=== PATIENT | female | born 1945 | race Caucasian/White ===

== ENCOUNTER 2018-05-04 14:53 | Inpatient (IN) | payer MEDICARE ==
[~2018-05-04 14:53] MED LIST: Glycopyrrolate 0.2 MG/ML 5 ML SYRINGE ONE; ISOVUE-370 76%-LOCM 1 ML ONE; Lidocaine 1% PF 5 ML VIAL ONE; Ondansetron HCl/PF 4 MG/2 ML Vial ONE; PROPOFOL 200 MG/20 ML VIAL ONE; Succinylcholine Chloride 20 MG/ML 10 ml SYRINGE FS ONE
[2018-05-04 15:26] LABS: #Lymphocytes 1.1 thou/uL (1.20-3.40); #Monocytes 0.5 thou/uL (0.11-0.59); %Basophils 0.2 % (0.0-1.0); %Eosinophils 0.1 % (0.0-10.0); %Lymphocytes 9.1 % (21.0-51.0); %Monocytes 4.3 % (0.0-10.0); %Neutrophils 86.3 % (42.0-75.0); Hemoglobin 14.8 g/dL (12.0-16.0); Mean Corpuscular HGB CONC 34.6 g/dL (32.0-36.0); Mean Corpuscular Hemoglobin 31.9 pg (27.0-31.0); Mean Corpuscular Volume 92.3 fL (78.0-98.0); Platelet Count 238 thou/uL (130-400); RBC Distribution Width 12.1 % (11.5-14.5); Red Blood Cell (RBC) Count 4.64 mill/uL (4.20-5.40); White Blood Cell (WBC) Count 11.5 thou/uL (4.8-10.8)
[2018-05-04 15:49] LABS: ALT (SGPT) 15 U/L (8-55); AST (SGOT) 17 U/L (5-34); Albumin 4.2 g/dL (3.4-4.8); Alkaline Phosphatase 65 U/L (40-150); Anion Gap 15 mmol/L (10-20); BUN (Urea Nitrogen) 13 mg/dL (9.8-20.1); Bilirubin, Total 1.9 mg/dL (0.2-1.2); Calc. Creatinine Clearance 0 mL/min (70-130); Calcium 9.5 mg/dL (7.8-10.44); Carbon Dioxide 24 mmol/L (23-31); Chloride 105 mmol/L (98-107); Estimated GFR-MDRD 70; Globulin 2.9 g/dL (2.4-3.5); Glucose 128 mg/dL (83-110); Lipase 10 U/L (8-78); Potassium 4.3 mmol/L (3.5-5.1); Protein, Total 7.1 g/dL (6.0-8.3); Sodium 140 mmol/L (136-145)
[2018-05-04] MEDS ORDERED: Ondansetron HCl/PF 4 MG/2 ML Vial ONE ×2 (16:52→20:54)
[2018-05-04 18:22] LABS: Bilirubin Negative (Negative); Blood, Urine Small (Negative); Clarity CLEAR (Clear); Glucose, Urine (Dipstick) Negative (Negative); Leukocyte Small (Negative); Nitrite Negative (Negative); Protein, Urine (Dipstick) Trace mg/dL (Neg-Trace); Specific Gravity, Urine 1.016 (1.002-1.036); Urobilinogen 0.2 mg/dL (0.2-1.0)
[2018-05-04 18:25] LABS: Bacteria/HPF None Seen HPF (None Seen); Pathc Cast-AUWi Flag 0.72 (0-2.49)
[2018-05-04 18:40] LABS: Hyaline Casts/LPF 0-3 HYALINE CAST LPF (0-3 Hyaline); RBC/HPF 0-3 HPF (0-3); Transitional Epithelial 0-3 HPF (0-3)
--- NOTE | 2018-05-04 19:07 | CT ---
CT OF ABDOMEN AND PELVIS 05/04/18 COMPARISON: None. HISTORY: Abdominal pain. TECHNIQUE: Serial axial CT imaging at 5 mm intervals from lung bases through pubic symphysis with IV and oral co ntrast. Coronal reformatted imaging obtained. FINDINGS: Imaged lung bases are unremarkable. No free intraperitoneal air. Small volume free fluid is seen in t he left hemipelvis. There is a probable gallstone seen in the region of the gallbladder neck on image 25. The liver and s pleen appear grossly unremarkable. There is a low density lesion in the tail of the pancreas which measures 2 cm in craniocaudal dimensi on and demonstrates Hounsfield units of approximately 20, greater than expected from a simple cyst. T he adrenal glands and the kidneys demonstrate no acute findings. The uterus appears surgically absent. There is sigmoid diverticulosis without evidence for diverticulitis. The appendix is dilated and thick walled. There is periappendiceal fat stranding. The appendix extend s from the posterior aspect of the cecum and extends into the lower midline pelvis. The appendix lety ures 1.1 cm in transverse dimension and there is adjacent mesenteric fat stranding. No drainable absc ess is noted. Review of the vascular structures demonstrates multifocal atherosclerotic calcification of the abdomi nal aorta. There is a small hiatal hernia. There is no lymphadenopathy seen in the abdomen or pelvis. There is a nonspecific hyperdense partially rim calcified lesion in the anterior aspect of the lower pelvis superior and anterior to the urinary bladder. This lesion measures 3.5 cm and demonstrates int ernal Hounsfield units of approximately 224, suggesting a calcified lesion. There is no evidence for bowel obstruction. Review of the osseous structures demonstrates multilevel lumbar spine degenerative change with disc s pace narrowing and multilevel facet hypertrophic change. There is a nonspecific sclerotic focus within the anterior aspect of the T12 vertebral body suggestin g a benign bone island. IMPRESSION: 1. Evidence of acute appendicitis. 2. Low density lesion in the tail of the pancreas which could represent a neoplastic process. 3. Nonspecific lesion within the pelvis which should be further evaluated with followup imaging. All findings discussed with Dr. Redmond at 6:45 p.m., 05/04/18. Code CR POS: [facility]
[2018-05-04] MEDS ORDERED: CEFAZOLIN 1 GM VIAL ONE (19:37)
[2018-05-04] MEDS ORDERED: cefOXitin 2 GM in Sodium Chloride 0.9% 100 ML IVPB SCH (19:45)
[2018-05-04] MEDS ORDERED: Bupivacaine HCl 0.25%/Epi 0.0005/PF 10 ML VIAL FS ONE (22:25)
[2018-05-04] MEDS ORDERED: Fentanyl 250 MCG/5 ML VIAL ONE (23:16)
--- NOTE | 2018-05-04 23:29 | HP ---
CHIEF COMPLAINT: Abdominal pain. HISTORY OF PRESENT ILLNESS: The patient is a pleasant 72-year-old white female. She had onset of ab dominal pain yesterday. It became worse today and she presented to the emergency room. In the emerg ency room, she was evaluated by Dr. Michael Luevano and at about 3:00 this afternoon, she had laborato ry studies revealing elevated white blood cell count of 11.5, hemoglobin of 14.8, platelet count is 2 38. Chemistry profile is essentially unremarkable, although her bilirubin slightly elevated at 1.9. CT scan was obtained revealing findings consistent with acute appendicitis. I was consulted for fur ther management. Unfortunately, have been waiting until this hour for an operating room to become av ailable to proceed with her surgery. PAST MEDICAL HISTORY: Essentially none. PAST SURGICAL HISTORY: Hysterectomy at least 30 years ago. MEDICATIONS: None. ALLERGIES: SULFA MEDICATIONS. PERSONAL AND SOCIAL HISTORY: She is with one child. She had several friends and family pres ent with her in the room. She denies tobacco or alcohol use. REVIEW OF SYSTEMS: Otherwise, unremarkable. FAMILY HISTORY: Noncontributory. PHYSICAL EXAMINATION: VITAL SIGNS: She is afebrile. Vital signs within normal limits. GENERAL: She is a well-developed, well-nourished, pleasant, thin white female in no acute distress. She is alert and oriented x3. HEAD, EYES, EARS, NOSE, THROAT: Unremarkable. NECK: Supple, without mass or tenderness. LUNGS: Clear to auscultation throughout. CARDIAC: Regular rate and rhythm without murmur. ABDOMEN: Diffusely tender with focal severe tenderness with peritoneal findings in the right lower q uadrant. Bowel sounds are present but hypoactive. EXTREMITIES: Unremarkable. ASSESSMENT: The patient with a CT scan and examination consistent with acute appendicitis. PLAN: Laparoscopic appendectomy. I have discussed the operation in detail with the patient as well as potential risks. She understands and agrees to proceed with surgery at this time.
[2018-05-05] MEDS ORDERED: HYDROcodone/Acetaminophen 10/325 mg Tablet PO PRN (00:59)
[2018-05-05] MEDS ORDERED: Promethazine HCl 25 MG/ML VIAL IM PRN ×2 (00:59→01:19)
[2018-05-05] MEDS ORDERED: Ondansetron HCl/PF 4 MG/2 ML Vial IVP PRN ×2 (00:59→01:19)
[2018-05-05] MEDS ORDERED: Morphine 4 MG/ML Carpuject SLOW IVP PRN (00:59)
[2018-05-05] MEDS ORDERED: Dextrose 5% in Water 1,000 ML IV PRN (00:59)
[2018-05-05] MEDS ORDERED: Dextrose 50% Abboject 50 ML SYRINGE SLOW IVP PRN (00:59)
[2018-05-05] MEDS ORDERED: Piperacillin/Tazobactam 3.375 GM VIAL ONE (01:15)
[2018-05-05] MEDS ORDERED: Sodium Chloride 0.9% 100 ML ONE (01:18)
[2018-05-05] MEDS ORDERED: Promethazine HCl 25 MG/ML VIAL SLOW IVP PRN (01:19)
[2018-05-05] MEDS ORDERED: Fentanyl 100 MCG/2 ML VIAL ONE (01:51)
--- NOTE | 2018-05-05 04:44 | OP ---
DATE OF PROCEDURE: 05/05/2018 PREOPERATIVE DIAGNOSIS: Acute appendicitis. POSTOPERATIVE DIAGNOSIS: Acute appendicitis, perforated. OPERATIONS PERFORMED: Laparoscopic appendectomy with extensive intra-abdominal irrigation, placement of intra-abdominal drain. SURGEON: Dr. Philip Day. ANESTHESIA: General endotracheal. INDICATIONS: Patient is a 72-year-old white female. She presented to the emergency room with findin gs consistent with acute appendicitis and is taken to the operating room, come for laparoscopic appen dectomy. She did have more diffuse pain in her abdomen then it is typical with appendicitis. DESCRIPTION OF OPERATION: Informed consent was obtained. Patient was taken to the operating room, w here general endotracheal anesthesia obtained with the patient in supine position. Abdomen was prepp ed with ChloraPrep and draped in sterile fashion. Local anesthetic was infiltrated and 5-mm infraumb ilical incision was created through which a Veress needle was passed into the peritoneal cavity and p neumoperitoneum established using carbon dioxide up to a pressure of 15 mmHg. A 5 mm trocar port was passed through this same incision. Laparoscopic camera was passed through this port. Under direct vision, 2 additional ports were placed including a 5 mm left lower quadrant port, a 12 mm suprapubic port. Initial examination within the abdomen revealed purulent material. There was a significant volume of this within the pelvis. This material was aspirated and sent for culture. There was noted to be an inflammatory mass adherent against the anterior abdominal wall in the low midline abdomen. This had around egg-like appearance appeared to be perhaps calcified. This was dissected away from the anter ior abdominal wall and proved to be associated with the omentum. It was dissected away from the omen christ and submitted as a specimen. I suspect this is a calcified segment of the omentum, probably an a carlos that become ischemic. Obvious appendicitis was identified, this distally had a gangrenous appearance. The mesoappendix was taken down using electrocautery and the base of the appendix was skeletonized. It was divided betwe en PDS Endoloop ties and the appendiceal stump was cauterized. The appendix and the omental mass wer e placed in a specimen retrieval sac and removed through the suprapubic port. The fascia was closed with a [id number] suture of 0 Vicryl. The abdominal contents were then copiously irrigated with 3 liters of saline. All irrigant was aspirated. A #19 round fluted drain was brought out through t he left lower quadrant port and placed down within the pelvis and in the right lower quadrant. It wa s secured externally with a 2-0 nylon suture. All ports and instruments removed under direct vision. Pneumoperitoneum was carefully evacuated. Additional local anesthetic infiltrated in each port sit e. The suprapubic wound was thoroughly irrigated with additional saline. This lower wound was close d in layers, closing the Jennifer's fascia with 3-0 Monocryl and skin edges with 4-0 Monocryl. Dermabo nd was placed external to the umbilical and suprapubic incisions. Gauze dressing was placed on gera ter exit site in the left lower quadrant. There were no complications. Patient tolerated the proced ure well and was taken to recovery room in stable condition.
[2018-05-05 05:36] LABS: Anion Gap 10 mmol/L (10-20); BUN (Urea Nitrogen) 12 mg/dL (9.8-20.1); Calc. Creatinine Clearance 0 mL/min (70-130); Calcium 8.3 mg/dL (7.8-10.44); Carbon Dioxide 25 mmol/L (23-31); Chloride 107 mmol/L (98-107); Estimated GFR-MDRD 76; Glucose 149 mg/dL (83-110); Potassium 4.2 mmol/L (3.5-5.1); Sodium 138 mmol/L (136-145)
[2018-05-05 05:41] LABS: Band 51 % (5-11); Hemoglobin 11.6 g/dL (12.0-16.0); Lymphocytes 8 % (21-51); MDiff Complete? YES; Mean Corpuscular HGB CONC 33.5 g/dL (32.0-36.0); Mean Corpuscular Hemoglobin 31.5 pg (27.0-31.0); Mean Corpuscular Volume 93.9 fL (78.0-98.0); Mean Platelet Volume 6.9 fL (7.4-10.4); Monocytes 2 % (0-10); Neutrophil 39 % (42-75); PLT Morphology Comment Appears Adequate; Platelet Count 179 thou/uL (130-400); RBC Distribution Width 12.4 % (11.5-14.5); Red Blood Cell (RBC) Count 3.69 mill/uL (4.20-5.40); Reflex for Review?? NO
[2018-05-05] MEDS: Ketorolac Tromethamine 30 MG/ML VIAL IVP SCH ×3 (05:49→17:47)
[2018-05-05] MEDS: D5 1/2 NS w/20 mEq KCL 1,000 ML IV SCH ×2 (05:50→10:40)
[2018-05-05] MEDS: Piperacillin/Tazobactam 3.375 GM in Sodium Chloride 0.9% 100 ML IVPB SCH ×3 (06:37→17:48)
--- NOTE | 2018-05-05 07:04 | PRG ---
DATE OF SERVICE: 05/05/2018 SUBJECTIVE: Ms. Castellon is status post laparoscopic appendectomy that finished in the early hours of this morning. She is resting comfortably in bed and noted she has discomfort when she moves around as appropriate. She had perforated appendicitis at the time of her surgery. PHYSICAL EXAMINATION: VITAL SIGNS: She is afebrile, temperature is 97.8, pulse is 80, blood pressure is within normal limi ts. Drain output is serosanguineous (more sanguinous) and was 60 mL this morning. LUNGS: Clear to auscultation. ABDOMEN: Two incisions appear to be healing nicely and the drain site in the left lower abdomen is c overed by gauze dressing. LABORATORY STUDIES: CBC from this morning reveals white blood cell count of 11.0, hemoglobin 11.6, p latelet count is 179. She has 51% bands on her CBC this morning. Chemistry reveals unremarkable bas ic metabolic panel. Her glucose is slightly elevated at 149. Her TSH is normal at 3.7. CULTURE: Culture specimen is not available yet. ASSESSMENT: The patient is postoperative day #1 following laparoscopic appendectomy for perforated a ppendicitis. She is on a clear liquid diet. She will be able to advance this as she tolerates. I w ould continue her on intravenous Zosyn at this time and if she is stable, then she may be ready for d ischarge as early as tomorrow. I will be out of town and Dr. Huizar will be covering in my absence.
[2018-05-05] MEDS: Famotidine/PF 20 mg/2ml Vial SLOW IVP SCH ×3 (11:18→22:13)
[2018-05-05] MEDS: Enoxaparin Sodium 40 MG/0.4 ML SYRINGE SC SCH (22:13)
[2018-05-06] MEDS: Piperacillin/Tazobactam 3.375 GM in Sodium Chloride 0.9% 100 ML IVPB SCH ×4 (00:04→17:53)
[2018-05-06] MEDS: Ketorolac Tromethamine 30 MG/ML VIAL IVP SCH ×4 (00:06→17:51)
[2018-05-06] MEDS: D5 1/2 NS w/20 mEq KCL 1,000 ML IV SCH ×2 (06:24→11:32)
[2018-05-06] MEDS: Famotidine 20 MG TAB PO SCH (08:49)
[2018-05-06 11:40] LABS: #Eosinphils 0.2 thou/uL (0.0-0.7); #Lymphocytes 1.1 thou/uL (1.20-3.40); #Monocytes 0.6 thou/uL (0.11-0.59); #Neutrophils 8.2 thou/uL (1.40-6.50); %Eosinophils 2.3 % (0.0-10.0); %Lymphocytes 10.4 % (21.0-51.0); %Monocytes 5.4 % (0.0-10.0); %Neutrophils 81.8 % (42.0-75.0); Hemoglobin 10.6 g/dL (12.0-16.0); Mean Corpuscular HGB CONC 33.1 g/dL (32.0-36.0); Mean Corpuscular Hemoglobin 31.7 pg (27.0-31.0); Mean Corpuscular Volume 95.7 fL (78.0-98.0); Mean Platelet Volume 7.6 fL (7.4-10.4); Platelet Count 176 thou/uL (130-400); RBC Distribution Width 12.2 % (11.5-14.5); Red Blood Cell (RBC) Count 3.34 mill/uL (4.20-5.40)
[2018-05-06 12:08] LABS: Anion Gap 9 mmol/L (10-20); BUN (Urea Nitrogen) 11 mg/dL (9.8-20.1); Calc. Creatinine Clearance 0 mL/min (70-130); Calcium 8.3 mg/dL (7.8-10.44); Carbon Dioxide 25 mmol/L (23-31); Chloride 108 mmol/L (98-107); Estimated GFR-MDRD 82; Glucose 105 mg/dL (83-110); Potassium 3.8 mmol/L (3.5-5.1); Sodium 138 mmol/L (136-145)
[2018-05-06] MEDS: hydrALAZINE 20 MG/ML VIAL SLOW IVP PRN ×2 (12:54→16:49)
--- NOTE | 2018-05-06 15:01 | PDOC.GSPN ---
Surgery Progress Note: Subj - Subjective Narrative: Feels good. Minimal abdominal pain. Her appetite is poor and she states that food has no taste but she is tolerating her liquid diet and has passed a little gas. She is not nauseated. Afebrile with normal vital signs. White count is normal. Electrolytes unremarkable. Abdomen is soft and nondistended. She has some mild lower abdominal tenderness and serosanguineous KATELYN drainage which is scant. Assessment/plan: Perforated appendicitis. Bowel function is returning and she is afebrile. White count today was normal. We'll continue with IV antibiotics and advance diet as tolerated. If she is afebrile overnight and her white count remains normal the drain will be discontinued and we'll plan to discharge her home. Surgery Progress Note: Obj - Vital signs Vital signs: Vital Signs - Most Recent Temp Pulse Resp BP Pulse Ox 98.0 F 71 16 159/70 H 95 05/06/18 12:01 05/06/18 12:54 05/06/18 12:01 05/06/18 13:48 05/06/18 08:05 Surgery Progress Note: Results - Labs Result Diagrams: 05/06/18 11:27 05/06/18 11:27 Lab results: Laboratory Results - last 24 hr 05/06/18 05/06/18 11:27 11:27 WBC 10.0 RBC 3.34 L Hgb 10.6 L Hct 31.9 L MCV 95.7 MCH 31.7 H MCHC 33.1 RDW 12.2 Plt Count 176 MPV 7.6 Neutrophils % 81.8 H Lymphocytes % 10.4 L Monocytes % 5.4 Eosinophils % 2.3 Basophils % 0.0 Neutrophils # 8.2 H Lymphocytes # 1.1 L Monocytes # 0.6 H Eosinophils # 0.2 Basophils # 0.0 Sodium 138 Potassium 3.8 Chloride 108 H Carbon Dioxide 25 Anion Gap 9 L BUN 11 Creatinine 0.70 Estimated GFR (MDRD) 82 Glucose 105 Calcium 8.3
[2018-05-06] MEDS ORDERED: Simethicone Chewable 80 MG TAB PO PRN (17:22)
[2018-05-07] MEDS: Ketorolac Tromethamine 30 MG/ML VIAL IVP SCH ×3 (00:08→12:02)
[2018-05-07] MEDS: Famotidine 20 MG TAB PO SCH ×2 (00:09→09:39)
[2018-05-07] MEDS: Enoxaparin Sodium 40 MG/0.4 ML SYRINGE SC SCH (00:09)
[2018-05-07] MEDS: Piperacillin/Tazobactam 3.375 GM in Sodium Chloride 0.9% 100 ML IVPB SCH ×3 (00:09→11:06)
[2018-05-07] MEDS: D5 1/2 NS w/20 mEq KCL 1,000 ML IV SCH ×2 (00:10→08:59)
[2018-05-07 05:35] LABS: Anion Gap 7 mmol/L (10-20); BUN (Urea Nitrogen) 6 mg/dL (9.8-20.1); Calc. Creatinine Clearance 0 mL/min (70-130); Carbon Dioxide 26 mmol/L (23-31); Chloride 111 mmol/L (98-107); Estimated GFR-MDRD 81; Glucose 114 mg/dL (83-110); Potassium 3.9 mmol/L (3.5-5.1); Sodium 140 mmol/L (136-145)
[2018-05-07 05:55] LABS: #Eosinphils 0.4 thou/uL (0.0-0.7); #Monocytes 0.5 thou/uL (0.11-0.59); #Neutrophils 5.4 thou/uL (1.40-6.50); %Basophils 0.1 % (0.0-1.0); %Eosinophils 4.9 % (0.0-10.0); %Lymphocytes 13.3 % (21.0-51.0); %Monocytes 6.9 % (0.0-10.0); %Neutrophils 74.7 % (42.0-75.0); Hemoglobin 10.3 g/dL (12.0-16.0); Mean Corpuscular HGB CONC 34.2 g/dL (32.0-36.0); Mean Corpuscular Hemoglobin 32.1 pg (27.0-31.0); Mean Corpuscular Volume 93.8 fL (78.0-98.0); Mean Platelet Volume 7.2 fL (7.4-10.4); Platelet Count 207 thou/uL (130-400); Red Blood Cell (RBC) Count 3.21 mill/uL (4.20-5.40); White Blood Cell (WBC) Count 7.2 thou/uL (4.8-10.8)
[2018-05-07] MEDS ORDERED: cloNIDine 0.1 MG TAB PO SCH (09:30)
[2018-05-07] MEDS ORDERED: hydrALAZINE 20 MG/ML VIAL SLOW IVP PRN (10:01)
[2018-05-07] MEDS ORDERED: cloNIDine 0.1 MG TAB PO PRN (10:01)
[2018-05-07] MEDS ORDERED: Labetalol HCl 100 MG/20 ML VIAL SLOW IVP PRN (10:01)
[2018-05-07] MEDS ORDERED: NIFEdipine XL 30 MG TAB PO SCH (10:15)
[2018-05-07 12:18] VITALS: TEMP 98.3
[2018-05-07 14:46] VITALS: BP 179/77
[2018-05-08] MEDS ORDERED: NIFEdipine XL 30 MG TAB PO SCH (09:00)
== END 2018-05-07 14:46 | disposition home or self-care (01) | DRG 340 ==
LOC: ERS 14:53 → NM 19:31 → 3SE 05-05 01:01
PROVIDERS: ADMIT Specialist; ATTEND Specialist
PROC: 0DTJ4ZZ Resection of Appendix, Percutaneous Endoscopic Approach (ICD-10-PCS; principal; 2018-05-05)
DX: K35.2 Acute appendicitis with generalized peritonitis (principal); Z88.2 Allergy status to sulfonamides
CPT/HCPCS: 36415; 74177; 80048; 80053; 81003; 81015; 83690; 84443; 85025; 86850; 86900; 86901; 87070; 87077; 87205; 88304; 93005; 96361; 96365; 96375; 96376; A4216; J0360; J0690; J0694; J1650; J1885; J2001; J2270; J2405; J2543; J2704; J3010; J7050; S0028

== ENCOUNTER 2020-07-23 16:53 | Inpatient (IN) | payer MEDICARE ==
[~2020-07-23 16:53] MED LIST changes: -Glycopyrrolate 0.2 MG/ML 5 ML SYRINGE ONE; -ISOVUE-370 76%-LOCM 1 ML ONE; +Iopamidol-370 76% 500 ML 1 ML ONE; -Lidocaine 1% PF 5 ML VIAL ONE; -Ondansetron HCl/PF 4 MG/2 ML Vial ONE; -PROPOFOL 200 MG/20 ML VIAL ONE; -Succinylcholine Chloride 20 MG/ML 10 ml SYRINGE FS ONE
[2020-07-23 17:43] LABS: #Basophils 0.1 thou/uL (0.0-0.2); #Eosinphils 0.1 thou/uL (0.0-0.7); #Lymphocytes 1.2 thou/uL (1.20-3.40); #Monocytes 0.9 thou/uL (0.11-0.59); %Basophils 0.3 % (0.0-1.0); %Eosinophils 0.3 % (0.0-10.0); %Lymphocytes 7.9 % (21.0-51.0); %Monocytes 5.8 % (0.0-10.0); %Neutrophils 85.7 % (42.0-75.0); Hemoglobin 14.2 g/dL (12.0-16.0); Mean Corpuscular HGB CONC 32.9 g/dL (32.0-36.0); Mean Corpuscular Hemoglobin 31.9 pg (27.0-31.0); Mean Corpuscular Volume 97.2 fL (78.0-98.0); Mean Platelet Volume 7.7 fL (7.4-10.4); Platelet Count 281 thou/uL (130-400); Red Blood Cell (RBC) Count 4.45 mill/uL (4.20-5.40); White Blood Cell (WBC) Count 15.2 thou/uL (4.8-10.8)
[2020-07-23 17:50] LABS: PTT 28.7 sec (22.9-36.1); Prothrombin Time 13.4 sec (12.0-14.7)
[2020-07-23 18:04] LABS: ALT (SGPT) 21 U/L (8-55); AST (SGOT) 27 U/L (5-34); Albumin 3.8 g/dL (3.4-4.8); Alkaline Phosphatase 53 U/L (40-110); Anion Gap 16 mmol/L (10-20); BUN (Urea Nitrogen) 12 mg/dL (9.8-20.1); Bilirubin, Total 1.3 mg/dL (0.2-1.2); CK (CPK) 88 U/L (29-168); Calc. Creatinine Clearance 0 mL/min (70-130); Calcium 8.3 mg/dL (7.8-10.44); Carbon Dioxide 23 mmol/L (23-31); Chloride 106 mmol/L (98-107); Estimated GFR-MDRD 81; Globulin 2.4 g/dL (2.4-3.5); Glucose 133 mg/dL (83-110); Potassium 3.8 mmol/L (3.5-5.1); Protein, Total 6.2 g/dL (6.0-8.3); Sodium 141 mmol/L (136-145)
[2020-07-23 18:59] LABS: Bilirubin Negative (Negative); Blood, Urine Negative (Negative); Clarity Clear (Clear); Glucose, Urine (Dipstick) Normal (Negative); Ketone, Urine Negative (Negative); Leukocyte Negative Leu/uL (Negative); Nitrite Negative (Negative); Protein, Urine (Dipstick) Negative (Neg-Trace); Specific Gravity, Urine 1.021 (1.002-1.036); Urobilinogen Normal mg/dL (Less than 2)
--- NOTE | 2020-07-23 19:24 | CT ---
CT ABDOMEN AND PELVIS WITH IV CONTRAST: 07/23/20 HISTORY: Abdominal pain. Right rectal bleeding. COMPARISON: 05/04/18. FINDINGS: There are mild dependent changes in the lung bases. A small hiatal hernia is present. A calcified gal lstone is present. The liver, spleen, adrenal glands, and right kidney are normal. There are parapelv ic cysts in the left kidney. There is a stable 2 cm (CC dimension)cystic mass in the tail of the pancreas. No free air or lymphadenopathy is seen in the abdomen or pelvis. There is a tiny amount of free fluid seen in the pelvis. The patient is post appendectomy and hysterectomy. There are vascular calcifica tions without evidence of aneurysmal dilatation of the abdominal aorta. There are degenerative change s in the spine. The small bowel loops are not abnormally dilated. There is sigmoid diverticulosis. There is thickenin g of the wall of the colon from the cecum through the distal descending colon. A tiny fat containing umbilical hernia is present. IMPRESSION: 1. Small hiatal hernia. 2. Cholelithiasis. 3. 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 4. Sigmoid diverticulosis. 5. Tiny amount of free fluid in the pelvis. 6. Thickening of the wall of the colon, likely due to colitis. Evaluation with colonoscopy is re commended. POS: OFF
[2020-07-23] MEDS ORDERED: Pantoprazole 40 MG VIAL ONE (19:36)
[2020-07-23] MEDS ORDERED: Aspirin Chewable 81 MG TAB ONE (19:36)
[2020-07-23] MEDS ORDERED: Ondansetron PF 4 MG/2 ML Vial IVP PRN (20:02)
--- NOTE | 2020-07-23 20:09 | PDOC.HHP ---
Hospitalist HPI - History of Present Illness Rectal bleed History of Present Illness: 75-year-old male with no known past medical history presents to the emergency department with a complaint of bloody stools of onset this morning. Patient report 4 bloody BM since onset, associated with abdominal cramps. Patient denied any nausea or vomiting. She denied any epigastric pain. This is her first episode of GI bleed. No bleeding since being in the ED. CT abdomen and pelvis done in the emergency department shows sigmoid diverticulosis, and thickening wall of the colon suggesting colitis. Hemoglobin is 14.2 and normal coagulation profile. Her troponin noted to be mildly elevated to be 0.144. Patient does not have a baseline history of coronary artery disease. Patient is hospitalized for further evaluation for GI bleed. ED Course: She was given IV Protonix in the ED. She was also given aspirin for possible ACS. Hospitalist ROS - Review of Systems Other: Except as documented, all other systems reviewed and negative. Hospitalist History - Past Medical History Source: patient Cardiac: reports: no pertinent history Pulmonary: reports: no pertinent history GLOBE MOUNTER: reports: no pertinent history Gastrointestinal: reports: no pertinent history Heme/Onc: reports: no pertinent history Endocrine: reports: no pertinent history - Past Surgical History Past Surgical History: reports: no pertinent history - Family History Family History: reports: cardiac disorder (Mother) - Social History Smoking Status: Never smoker Alcohol: reports: None Drugs: reports: none - Exam General Appearance: NAD, awake alert Eye: PERRL, anicteric sclera ENT: normocephalic atraumatic, no oropharyngeal lesions, moist mucosa Neck: supple, no JVD, no thyromegaly Heart: RRR, no murmur, normal peripheral pulses Respiratory: CTAB, no wheezes, no rales, no ronchi, normal chest expansion Gastrointestinal: soft, non-tender, non-distended, normal bowel sounds, no hepatomegaly Extremities: no cyanosis, no edema Skin: normal turgor Neurological: cranial nerve grossly intact, no weakness, no focal deficits Musculoskeletal: normal strength, no muscle wasting Psychiatric: normal affect, normal behavior, A&O x 3 Hospitalist Results - Labs Result Diagrams: 07/24/20 04:00 07/24/20 04:00 Lab results: WBC 15.2 thou/uL (4.8-10.8) H 07/23/20 17:32 Hgb 14.2 g/dL (12.0-16.0) 07/23/20 17:32 Hct 43.2 % (36.0-47.0) 07/23/20 17:32 MCV 97.2 fL (78.0-98.0) 07/23/20 17:32 Plt Count 281 thou/uL (130-400) 07/23/20 17:32 Neutrophils % 85.7 % (42.0-75.0) H 07/23/20 17:32 Sodium 141 mmol/L (136-145) 07/23/20 17:32 Potassium 3.8 mmol/L (3.5-5.1) 07/23/20 17:32 Chloride 106 mmol/L (98-107) 07/23/20 17:32 Carbon Dioxide 23 mmol/L (23-31) 07/23/20 17:32 BUN 12 mg/dL (9.8-20.1) 07/23/20 17:32 Creatinine 0.70 mg/dL (0.6-1.1) 07/23/20 17:32 Glucose 133 mg/dL (83-110) H 07/23/20 17:32 Calcium 8.3 mg/dL (7.8-10.44) 07/23/20 17:32 Total Bilirubin 1.3 mg/dL (0.2-1.2) H 07/23/20 17:32 AST 27 U/L (5-34) 07/23/20 17:32 ALT 21 U/L (8-55) 07/23/20 17:32 Alkaline Phosphatase 53 U/L (40-110) 07/23/20 17:32 Creatine Kinase 88 U/L (29-168) 07/23/20 17:32 CK-MB (CK-2) 3.0 ng/mL (0-6.6) 07/23/20 17:32 Troponin I 0.144 ng/mL (< 0.028) H 07/23/20 17:32 B-Natriuretic Peptide 69.4 pg/mL (0-100) 07/23/20 17:32 Serum Total Protein 6.2 g/dL (6.0-8.3) 07/23/20 17:32 Albumin 3.8 g/dL (3.4-4.8) 07/23/20 17:32 Urine Ketones Negative mg/dL (Negative) 07/23/20 18:33 Urine Blood Negative (Negative) 07/23/20 18:33 Urine Nitrite Negative (Negative) 07/23/20 18:33 Ur Leukocyte Esterase Negative Shaye/uL (Negative) 07/23/20 18:33 - Radiology Interpretation CT scan - abdomen Status: report reviewed by me (Sigmoid diverticulosis, tiny amount of free fluid in the pelvis, thickening of the wall of the colon likely due to colitis, cholelithiasis, small hiatal hernia.) Hospitalist H&P A/P - Problem (1) Lower GI bleed Code(s): K92.2 - GASTROINTESTINAL HEMORRHAGE, UNSPECIFIED Status: Acute Assessment and Plan: No known precipitant. No prior history of GI bleed. (2) Elevated troponin Code(s): R79.89 - OTHER SPECIFIED ABNORMAL FINDINGS OF BLOOD CHEMISTRY Status: Acute Assessment and Plan: No history of coronary artery disease. (3) Leukocytosis Code(s): D72.829 - ELEVATED WHITE BLOOD CELL COUNT, UNSPECIFIED Status: Acute Assessment and Plan: No fever or tachycardia and does not meet criteria for sepsis. (4) Cystic mass of pancreas Code(s): K86.2 - CYST OF PANCREAS Status: Acute Assessment and Plan: Old finding and stable per CT scan result. - Plan Plan: Admit to the medical floor. Supportive measures with IV hydration with normal saline. Pain medications as needed. Start IV Protonix. GI consult requested. Patient may need EGD/colonoscopy. Patient has low cardiac risk factors. Only positive risk factor is family history. Will trend troponin and obtain echocardiogram. Further management will based on troponin result. Will avoid aspirin at this time given rectal bleeding. Monitor and treat blood pressure. Further monitoring of pancreatic cystic mass as outpatient.
[2020-07-23] MEDS: Pantoprazole 40 MG VIAL IVP SCH (23:48)
[2020-07-23] MEDS: Sodium Chloride 0.9% 1,000 ML IV SCH (23:48)
[2020-07-24] LABS: Troponin I 0.144 ng/mL (< 0.028)
[2020-07-24 01:30] VITALS: BMI 22.7
[2020-07-24] MEDS: Sodium Chloride 0.9% 1,000 ML IV SCH ×3 (02:51→17:07)
[2020-07-24 04:43] LABS: #Eosinphils 0.1 thou/uL (0.0-0.7); #Lymphocytes 1.6 thou/uL (1.20-3.40); #Monocytes 0.8 thou/uL (0.11-0.59); #Neutrophils 11.1 thou/uL (1.40-6.50); %Basophils 0.3 % (0.0-1.0); %Eosinophils 0.4 % (0.0-10.0); %Lymphocytes 11.7 % (21.0-51.0); %Neutrophils 81.7 % (42.0-75.0); Hemoglobin 12.3 g/dL (12.0-16.0); Mean Corpuscular HGB CONC 32.4 g/dL (32.0-36.0); Mean Corpuscular Hemoglobin 31.5 pg (27.0-31.0); Mean Corpuscular Volume 97.3 fL (78.0-98.0); Mean Platelet Volume 7.8 fL (7.4-10.4); Platelet Count 258 thou/uL (130-400); RBC Distribution Width 12.9 % (11.5-14.5); Red Blood Cell (RBC) Count 3.92 mill/uL (4.20-5.40); White Blood Cell (WBC) Count 13.6 thou/uL (4.8-10.8)
[2020-07-24 04:57] LABS: Anion Gap 11 mmol/L (10-20); BUN (Urea Nitrogen) 10 mg/dL (9.8-20.1); Calc. Creatinine Clearance 75 mL/min (70-130); Calcium 7.8 mg/dL (7.8-10.44); Carbon Dioxide 26 mmol/L (23-31); Chloride 109 mmol/L (98-107); Estimated GFR-MDRD 90; Glucose 110 mg/dL (83-110); Potassium 3.6 mmol/L (3.5-5.1); Sodium 142 mmol/L (136-145)
[2020-07-24] MEDS: Pantoprazole 40 MG VIAL IVP SCH ×2 (09:02→20:57)
[2020-07-24] MEDS ORDERED: Iopamidol-370 76% 500 ML 1 ML ONE (09:10)
--- NOTE | 2020-07-24 18:38 | PDOC.HOSPP ---
- Subjective Encounter Date: 07/24/20 Encounter Time: 15:00 Subjective: The patient states she had 6 bright red stools yesterday. She does not take NSAIds, aspirin or blood thinners. She took aleve once a few days ago for joint pain. She denies nausea or vomiting - Objective Vital Signs & Weight: Vital Signs (12 hours) Temp Pulse Resp BP Pulse Ox 07/24/20 16:00 98.1 F 87 16 172/74 H 95 07/24/20 12:00 98.5 F 76 17 150/66 H 94 L 07/24/20 08:00 98.7 F 80 17 171/84 H 96 Weight Weight 140 lb 14.4 oz I&O: 07/23/20 07/24/20 07/25/20 06:59 06:59 06:59 Intake Total 120 Balance 120 Result Diagrams: 07/24/20 04:00 07/24/20 04:00 Hospitalist ROS - Review of Systems Constitutional: denies: fever, chills - Medication Medications: Active Medications Generic Name Dose Route Start Last Admin Trade Name Jimboq PRN Reason Stop Dose Admin Sodium Chloride 1,000 mls @ 75 mls/hr 07/23/20 20:15 07/24/20 17:07 Normal Saline 0.9% IV 1,000 mls .[id number] VENITA Administration Pantoprazole Sodium 40 mg 07/23/20 21:00 07/24/20 09:02 Pantoprazole 40 Mg Vial IVP 40 mg Q12HR VENITA Administration - Exam General Appearance: NAD, awake alert Eye: PERRL, anicteric sclera ENT: normocephalic atraumatic, no oropharyngeal lesions Neck: no JVD Heart: RRR, no murmur, no gallops, no rubs Respiratory: CTAB, no wheezes, no rales, no ronchi Gastrointestinal: soft, non-tender, non-distended, normal bowel sounds Extremities: no cyanosis, no clubbing, no edema Hosp A/P - Plan ECHO: EF 60-6%, diastolic dysfunction CT abdomen/pelvis: small hiatal hernia. Cholelithiasis. 2 cm cystic mass in pancreatic tail. Sigmoid diverticulosis. Thickening of colon wall due to colitis. This is a 75 year old female who presented with bright red stools , abdominal pain Acute lower GI bleed - CT abdomen showed colitis. GI has been consulted, CTA is pending currently - hold off on colonoscopy for now per GI recommendations since stable hemoglobin. Possibly may be ischemic colitis? - continue protonix Leukocytosis - improving, WBC down to 13.6. No signs of infection. Unlikely infectious colitis Elevated troponin - likely type II NSTEMI - ECHO showed no wall motion abnormality Pancreatic mass - 2 cm cystic mass, unchanged. Outpatient follow up DVT prophylaxis: holding GI prophylaxis : protonix Code status: full code
--- NOTE | 2020-07-24 19:33 | CON ---
DATE OF CONSULTATION: 07/24/2020 REASON FOR CONSULTATION: Hematochezia, abnormal GI imaging. CONSULTING PROVIDER: Edson Maldonado MD HISTORY OF PRESENT ILLNESS: The patient is a 75-year-old female with no significant past medical history, presenting with complaints of hematochezia. She states that she was in her usual state of health until Wednesday evening when she began having increased suprapubic abdominal pain characterized as a cramping type sensation, radiating to her lower back, was intermittent and reached a severity of 10/10 associated with this increased suprapubic abdominal pain, the patient began to experience frequent diarrhea having approximately 4 to 5 episodes of liquid bowel movements over the next 12 hours. However, the following morning, the patient began looking at what was contained within the toilet primarily due to the observance of bright red blood per rectum on the toilet paper and was now noting to have gross red blood within the toilet itself. Over the next 12 hours, the patient had 2 to 3 additional grossly bloody bowel movements with very little stool associated with this defecation. With these bloody bowel movements that prompted her to seek healthcare assistance at the [facility] ER, where she underwent initial evaluation including routine labs and a CT scan showing significant wall thickening of the right and transverse colons. She was ultimately admitted to the hospital for further evaluation of these findings. Since being admitted to the hospital, she has had almost complete resolution of this cramping abdominal pain nor has she had any additional episodes of bowel movements or bloody bowel movements at that. Currently, she denies any nausea, vomiting, fevers, chills, hematemesis, melena, dysphagia, odynophagia, weight loss or diarrhea/constipation prior to admission. REVIEW OF SYSTEMS: A 10-category review of systems was obtained with all responses negative except for the pertinent positives as listed in HPI. PAST MEDICAL HISTORY: As per HPI. PAST SURGICAL HISTORY: Appendectomy and hysterectomy. SOCIAL HISTORY: Denies any tobacco, alcohol, or illicit drug use. FAMILY HISTORY: Sister was diagnosed with ovarian cancer at an unknown age and her other sister was diagnosed with an unknown cancer, but was widely metastatic at the time of diagnosis. Otherwise, family history is significant for heart disease in her father, mother, and maternal uncle. OUTPATIENT MEDICATIONS: None. ALLERGIES: SULFA. PHYSICAL EXAMINATION: VITAL SIGNS: Temperature 98.1, pulse 87, blood pressure 172/74, respiratory rate 16, and saturating 95% on room air. GENERAL: The patient is lying in bed, in no acute distress. Alert and oriented x4. HEENT: Normocephalic and atraumatic. NECK: Supple. No JVD or scleral icterus noted. CARDIOVASCULAR: Regular rate and rhythm with a 3/6 systolic murmur best heard at the left upper sternal border. RESPIRATORY: Clear to auscultation bilaterally with no discernible wheezes or rales. ABDOMEN: Normoactive bowel sounds. Soft and nondistended. Mild tenderness to palpation in the periumbilical region. EXTREMITIES: No cyanosis, clubbing, or edema. LABORATORY DATA: CBC with a white blood cell count of 13.6, hemoglobin 12.3, hematocrit 38.1, and platelets 258. INR 1.0. Chemistry with a sodium of 142, potassium 3.6, chloride 109, CO2 of 26, BUN 10, creatinine 0.64, glucose 110, AST 27, ALT 21, alkaline phosphatase 53, total bilirubin 1.3, and albumin 3.8. Troponins initially at 0.14, but trending to 0.13 and later 0.14. 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 However, thickening of the colonic wall was seen extending from the cecum to the ascending, transverse, and distal descending colons. ASSESSMENT AND PLAN: The patient is a 75-year-old female with no significant past medical history, presenting with hematochezia and abnormal GI imaging consistent with ischemic colitis. Ischemic colitis. The patient is presenting with acute onset of suprapubic abdominal pain, diarrhea, and later hematochezia characterized as bright red blood per rectum that ultimately prompted evaluation at the [facility] ER. While in the ER, she had a CT scan that showed significant wall thickening of the colon extending from the cecum to the descending colon without any additional abnormalities associated with this finding. However, during the course of this admission, the patient has had almost complete resolution of her abdominal pain in addition to no further bloody bowel movements nor has she had any diarrhea since admission as well. Given her advanced age, family history of cardiac disease/vasculopathy and the extent of involvement on the dilated colon. The likelihood of ischemic colitis is high. Differential could include ischemic colitis, infectious colitis, inflammatory bowel disease, diverticulitis (less likely) and/or gastrointestinal neoplasm (less likely given the extent of involvement and without metastatic disease). Recommendations; 1. Given the higher likelihood of ischemic colitis, I will confer with Radiology as to whether or not evaluation of the SMA could be seen during her last CT scan. If not, I will order a CT angiography for further evaluation. 2. In the meantime, I would recommend supportive care with IV fluids to help maintain normotensive pressures. 3. Pain control per primary team. 4. Would also obtain infectious stool studies for evaluation of possible pathogen generating her current symptoms. 5. Would wait for the above findings before proceeding with colonoscopy. If this is ischemic colitis, then she should respond to more conservative management with colonoscopy to be scheduled as an outpatient. Pancreatic cyst. 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 Given the stability of the lesion, it is likely a benign lesion. However, the patient will most likely need serial imaging from here on to make sure a malignant process is not present with the patient's age placing her at increased risk for the formation of IPMN. Recommendations; 1. Would repeat the CT scan pancreas protocol in approximately 1 year for further evaluation of the cystic mass. 2. If the cystic mass is enlarging in size or greater than 3 cm in size, I would recommend endoscopic ultrasound for further evaluation. We will continue to follow. Please call with any questions. Job ID: [id number]
--- NOTE | 2020-07-24 20:34 | CT ---
CTA ABDOMEN AND PELVIS WITH IV CONTRAST AND 3D POSTPROCESSIN07/24/20 HISTORY: Ischemic colitis. FINDINGS: There are vascular calcifications without evidence of aneurysmal dilatation of the abdominal aorta. T here is good flow in the celiac axis, SMA, and LUANN. There is mild to moderate stenosis at the origin of the left renal artery. There is continued thickening of the romeo of the colon from the cecum through the descending colon w ith pericolonic inflammatory changes which are slightly more prominent compared to the previous study . Sigmoid diverticulosis again seen. A small amount of free fluid is seen in the pelvis, slightly mor e than that on the previous study. The remainder of the exam is otherwise stable. IMPRESSION: 1. No evidence of high grade stenosis at the origins of the celiac access or SMA. 2. Findings of colitis are again seen with increased pericolonic inflammatory changes since yesterday . 3. Increase in small amount of fluid in the pelvis since yesterday. POS: OFF
[2020-07-25 04:35] LABS: Hemoglobin 12.3 g/dL (12.0-16.0); Mean Corpuscular HGB CONC 33.9 g/dL (32.0-36.0); Mean Corpuscular Volume 97.3 fL (78.0-98.0); Mean Platelet Volume 7.7 fL (7.4-10.4); Platelet Count 252 thou/uL (130-400); RBC Distribution Width 12.8 % (11.5-14.5); Red Blood Cell (RBC) Count 3.72 mill/uL (4.20-5.40); White Blood Cell (WBC) Count 14.6 thou/uL (4.8-10.8)
[2020-07-25] MEDS: Pantoprazole 40 MG VIAL IVP SCH ×2 (08:41→21:12)
[2020-07-25] MEDS ORDERED: cefTRIAXone\\ROCEPHIN 1 GM in Sodium Chloride 0.9% 100 ML IVPB SCH (09:00)
[2020-07-25] MEDS ORDERED: Albumin 25% 25 GM/100 ML BOT IVPB SCH (09:30)
[2020-07-25] MEDS ORDERED: metroNIDAZOLE 500 MG in Premix Bag 1 BAG IVPB SCH (10:00)
[2020-07-25] MEDS: cefTRIAXone\\ROCEPHIN 1 GM in Sodium Chloride 0.9% 100 ML IVPB SCH (13:14)
[2020-07-25] MEDS: metroNIDAZOLE 500 MG in Premix Bag 1 BAG IVPB SCH ×2 (14:56→21:12)
--- NOTE | 2020-07-25 15:16 | PRG ---
DATE OF SERVICE: 07/25/2020 SUBJECTIVE: Ms. Castellon is doing better. She is still having some abdominal discomfort and tenderness, but she denies any bloody stool any further. She is tolerating a liquid diet. She asked about going home. MEDICATIONS: Reviewed. 1. Rocephin. 2. Metronidazole. 3. Protonix. OBJECTIVE: VITAL SIGNS: Temperature 97, pulse 82, blood pressure 134/70. ABDOMEN: Soft. There is mild tenderness in lower abdomen. There is no rebound. There is no guarding. LABORATORY DATA: White count 14.6, hemoglobin 12, platelet count 252. INR 1. Sodium 142, potassium 3.6, BUN and creatinine are 10 and 0.6. Liver function tests normal bilirubin 1.3. ASSESSMENT: Likely acute gastroenteritis. The CT angio showed no evidence of blockage in the celiac or SMA, so this makes ischemic colitis less likely. RECOMMENDATIONS: Continue present antibiotics, restart some IV fluids. The patient has received two CT scans in the past 2 days. I think this is probably infectious. We will await and see if the stool cultures show anything. Job ID: [id number]
[2020-07-25] MEDS: Dextrose 5 % And 0.9 % NaCl 1,000 ML IV SCH (16:49)
--- NOTE | 2020-07-25 19:52 | PDOC.HOSPP ---
- Subjective Encounter Date: 07/25/20 Encounter Time: 09:00 Subjective: The patient has not had blood in her stools. She states her abdomen felt very crampy and had some loose stools, but after getting antibiotics her pain resolved. SHe tolerated clear liquid diet and requested to be advanced The patient was advanced to full liquid diet, she had one loose stool and felt it was from drinking tomato soup which causes some indigestion - Objective Vital Signs & Weight: Vital Signs (12 hours) Temp Pulse Resp BP Pulse Ox 07/25/20 16:00 97.6 F 78 16 133/76 96 07/25/20 12:00 97.4 F L 82 14 134/77 96 07/25/20 08:00 98.0 F 78 16 148/67 H 95 Weight Weight 140 lb 14.4 oz I&O: 07/24/20 07/25/20 07/26/20 06:59 06:59 06:59 Intake Total 120 195 700 Output Total 500 Balance 120 -305 700 Result Diagrams: 07/25/20 04:06 07/24/20 04:00 Hospitalist ROS - Review of Systems Constitutional: denies: fever, chills - Medication Medications: Active Medications Generic Name Dose Route Start Last Admin Trade Name Freq PRN Reason Stop Dose Admin Ceftriaxone Sodium 1 gm/ 100 mls @ 200 mls/hr 07/25/20 13:00 07/25/20 13:14 Sodium Chloride IVPB 100 mls 1300 VENITA Administration Metronidazole 500 mg/ Device 100 mls @ 100 mls/hr 07/25/20 14:00 07/25/20 14:56 IVPB 100 mls Q8HR VENITA Administration Dextrose/Sodium Chloride 1,000 mls @ 75 mls/hr 07/25/20 14:45 07/25/20 16:49 D5 0.9% Ns IV 1,000 mls .[id number] VENITA Administration Pantoprazole Sodium 40 mg 07/23/20 21:00 07/25/20 08:41 Pantoprazole 40 Mg Vial IVP 40 mg Q12HR VENITA Administration - Exam General Appearance: NAD, awake alert Eye: PERRL, anicteric sclera ENT: normocephalic atraumatic, no oropharyngeal lesions Neck: no JVD Heart: RRR, no murmur, no gallops, no rubs Respiratory: CTAB, no wheezes, no rales, no ronchi Gastrointestinal: soft, non-tender, non-distended, normal bowel sounds Extremities: no cyanosis, no clubbing, no edema Skin: normal turgor, no lesions, no rashes Neurological: cranial nerve grossly intact, normal sensation to touch, no focal deficits, no new deficit Musculoskeletal: normal tone, normal strength, no muscle wasting Psychiatric: normal affect, normal behavior, A&O x 3, oriented to person Hosp A/P - Plan ECHO: EF 60-6%, diastolic dysfunction CT abdomen/pelvis: small hiatal hernia. Cholelithiasis. 2 cm cystic mass in pancreatic tail. Sigmoid diverticulosis. Thickening of colon wall due to colitis. This is a 75 year old female who presented with bright red stools , abdominal pain Acute lower GI bleed - resolved - CT abdomen showed colitis. GI has been consulted, CTA showed no stenotic lesions. - Hb stable, no need for colonoscopy per GI #Colitis #Leukocytosis - WBC is up to 14.6. Stool cultures, campylobacter and C dfif negative. UA nega tive - will order IV ceftriaxone and flagyl . Continue full liquid diet Elevated troponin - likely type II NSTEMI - ECHO showed no wall motion abnormality Pancreatic mass - 2 cm cystic mass, unchanged. Outpatient follow up per GI DVT prophylaxis: holding GI prophylaxis : protonix Code status: full code
[2020-07-25] MEDS ORDERED: Acetaminophen 325 MG TAB PO PRN (23:12)
[2020-07-26] MEDS: metroNIDAZOLE 500 MG in Premix Bag 1 BAG IVPB SCH ×2 (05:21→14:12)
[2020-07-26] MEDS: Dextrose 5 % And 0.9 % NaCl 1,000 ML IV SCH (07:10)
[2020-07-26] MEDS: Pantoprazole 40 MG VIAL IVP SCH (08:54)
[2020-07-26 09:40] LABS: Hemoglobin 11.4 g/dL (12.0-16.0); Mean Corpuscular HGB CONC 32.9 g/dL (32.0-36.0); Mean Corpuscular Hemoglobin 32.4 pg (27.0-31.0); Mean Corpuscular Volume 98.6 fL (78.0-98.0); Mean Platelet Volume 7.5 fL (7.4-10.4); Platelet Count 241 thou/uL (130-400); RBC Distribution Width 12.6 % (11.5-14.5); White Blood Cell (WBC) Count 10.6 thou/uL (4.8-10.8)
--- NOTE | 2020-07-26 12:10 | PRG ---
DATE OF SERVICE: 07/26/2020 SUBJECTIVE: Ms. Hagen notes she is having less abdominal pain. She is tolerating a full liquid diet. She would actually like to go home. OBJECTIVE: VITAL SIGNS: Temperature is 98.5 and T-max was 100.1 yesterday. Blood pressure 144/67. LUNGS: Clear. HEART: Regular without clicks or murmurs. ABDOMEN: Soft. There is mild tenderness in lower abdomen. No rebound or guarding. LABORATORY DATA: White count of 10.6, hemoglobin 11.4, and platelet count 241. BUN and creatinine are normal. Microbiology: C difficile, Campylobacter, shiga toxins negative. Culture, many normal shelton. ASSESSMENT: Hematochezia with diarrhea, likely infectious. She had pancolitis on CT. She is getting better. RECOMMENDATIONS: Advance to a lactose-free diet. Change antibiotics to by mouth. I think if she tolerates this, she can go home. She can follow up in our office with Dr. Guzmán in 1 to 2 weeks regarding the lesion in the tail of the pancreas, stable since 04/2018. This can be followed with radiologic studies as long as remains under 3 cm in size. I will follow from a distance. If I can be of further assistance in the patient's care, please do not hesitate to contact me. Job ID: [id number]
[2020-07-26] MEDS: cefTRIAXone\\ROCEPHIN 1 GM in Sodium Chloride 0.9% 100 ML IVPB SCH (12:18)
[2020-07-26 16:30] VITALS: BP 135/74; TEMP 97.8
--- NOTE | 2020-07-29 13:03 | DIS ---
DATE OF ADMISSION: 07/23/2020 DATE OF DISCHARGE: 07/26/2020 DISCHARGE DIAGNOSES: 1. Infectious colitis. 2. 2 cm cystic mass in the pancreas 3. Leukocytosis 4. Elevated troponin secondary to type 2 demand ischemia. 5. Anemia CONSULTATIONS: Dr. Sukhjinder Gregory from GI. PROCEDURES: None. BRIEF HISTORY OF PRESENT ILLNESS: This is a 75-year-old female with no past medical history, presented to the emergency room with acute onset of bloody stools. The patient does not take any blood thinners at home. When she presented to the emergency room, her hemoglobin was 14.2. CT scan of her abdomen showed thickening of the colon wall due to colitis as well as a 2 cm cystic mass of the pancreatic tail. The patient was admitted for further workup. HOSPITAL COURSE: 1. Acute lower GI bleed: She was monitored with serial CBCs which were stable with hemoglobin ranging from 11.4 to 14. GI was consulted and recommended conservative management. She continued to have some mild bloody stools and lower quadrant abdominal pain, so was started on IV ceftriaxone and flagyl. The following day, her abdominal pain and bloody stools resolved and her leukocytyosis improved so she was discharged with oral cefdinir and flagyl. She is to follow up with her PCP in a week and have repeat labs done. 2. Pancreatic cystic mass: The patient has an incidental 2 cm cystic mass in the tail of the pancreas. This is an old finding since April 2018. GI recommended outpatient followup. The patient has no abdominal pain or jaundice. 3. Elevated troponin: Patient's troponin was in the indeterminate range at 0.144. Echo showed no wall motion abnormalities. She denies chest pain. Consider stress test as an outpatient. DISCHARGE PHYSICAL EXAMINATION: VITAL SIGNS: Temperature 97.8, heart rate 74, respiratory rate 14, O2 saturation 96% on room air, blood pressure 135/74. GENERAL: The patient is alert, awake, and oriented x3. CARDIOVASCULAR: Regular rate and rhythm with no murmurs, rubs, or gallops. LUNGS: Clear to auscultation bilaterally. ABDOMEN: Positive bowel sounds. Soft, nontender, nondistended. EXTREMITIES: No significant edema. PERTINENT LABORATORY DATA: CBC, 07/26; white count 10.6, hemoglobin 11.4, hematocrit 34.5, platelet count 241. White count, 07/23: 15.2. BMP, 07/24: normal. Troponin I: peaked at 0.144. LFTs 07/23; normal. UA 07/23; negative. IMAGING DATA: CT abdomen, 07/23; small hiatal hernia, cholelithiasis. 2 cm cystic mass in the tail of pancreas. Sigmoid diverticulosis. Thickening of the wall likely due to colitis. CT angio abdomen 07/24; no high-grade stenosis. Echo07/24: EF 60% to 65% with diastolic dysfunction. Trace MR. Mild AR. Mild TR. DISCHARGE CONDITION: Stable. ACTIVITY: As tolerated. DIET: Regular diet. DISCHARGE MEDICATIONS: 1. Cipro 500 mg p.o. q.12 hours. 2. Flagyl 500 mg p.o. q.8 hours. DISCHARGE INSTRUCTIONS: The patient should follow up with Dr. Sukhjinder Guzmán in 2 weeks and PCP in 7 days. Job ID: [id number] MTDD
--- NOTE | 2020-07-31 16:54 | EKG ---
Test Reason : Blood Pressure : / mmHG Vent. Rate : 092 BPM Atrial Rate : 092 BPM P-R Int : 142 ms QRS Dur : 080 ms QT Int : 364 ms P-R-T Axes : 067 009 067 degrees QTc Int : 450 ms Normal sinus rhythm Possible Left atrial enlargement Possible Inferior infarct , age undetermined Possible Anterolateral infarct , age undetermined Abnormal ECG Confirmed by DONA VANEGAS, BECKA ([id number]), advertising editor CATY STACY ([id number]) on 07/31/2020 4:53:47 PM Referred By: Confirmed By:BECKA CARCAMO MD
--- NOTE | 2020-08-02 05:53 | PQF ---
CLINICAL DOCUMENTATION CLARIFICATION FORM: Dear : Mishel Rodriguez Date / Time: 08/02/20 0553 Please exercise your independent, professional judgment in responding to the clarification form. Clinical indicators are provided on the bottom of this form for your review In your clinical opinion based on clinical findings below, can you please identify the etiology of GI bleed if due to: Please check appropriate box(es): [ ] Ischemic Colitis [ X ] Infectious Colitis [ ] Acute Gastroenteritis [ ] Other diagnosis,please specify: [ ] Unable to determine Physician Signature: Date/Time: For continuity of documentation, please document condition throughout progress notes and discharge summary. Thank You. To be completed by CDI/Coding staff for physician review: Present Clinical Indicators - Signs / Symptoms / Labs Results and Location in Medical Record [X] BP 176/77, Pulse 80, Resp 16, Temp 99 Vital signs 07/23 [X] WBC 15.2, RBC 4.45, Hgb 14.2, Hct 43.2 Laboratory 07/23 [X] Stool Occult blood: Positive Microbiology 07/23 [X] Abdominal CT Impression: Sigmoid diveticulosis and thickening wall of colon suggestive colitis Imaging Dr Fernandes 07/23 [X] report 4 bloody BM since onset, associated with abdominal cramps H&P Dr Maldonado 07/23 [X] Leukocytosis H&P Dr Maldonado 07/23 [X] Presenting with hematochezia and abnormal GI imaging consistent with ischemic colitis Consult Dr Guzmán 07/24 [X] Likely acute gastroenteritis. The CT angio showed no evidence of blockage in the celiac or SMA so this makes ischemic colitis less likely PN p1 07/25 Dr Valerio [X] Hematochezia with diarrhea, likely infection PN p1 07/26 Dr Valerio [X] Acute lower GI Bleed possibly may be ischemic colitis? PN p3 07/24 Dr. Rodriguez [X] She has pancolitis on CT PN p1 07/26 Dr Valerio [X] Stool Culture: Negative E.coli, Negative for campylobacter antigen and negative C.diff Stool culture 07/25 Present Risk Factors Results and Location in Medical Record [X] 75 year-old Female H&P Dr Maldonado 07/23 [X] Cystic mass of pancreas H&P Dr Maldonado 07/23 [X] Sigmoid Diverticulosis H&P Dr Maldonado 07/23 [X] Hiatal Hernia H&P Dr Maldonado 07/23 Present Treatments Results and Location in Medical Record [X] IV Ceftriaxone Sodium 1gm JAN 01 [X] IV Metronidazole 500 mg JAN 01 [X] IV Protonix 40 mg DEC 31 [X] IVF NS 1L DEC 31 [X] Stool Occult blood Microbiology 07/23 [X] Abdominal CT Imaging Dr Fernandes 07/23 [X] GE Consult Consult Dr Guzmán 07/24 [X] Stool Culture Collected 07/25 CDS/Real Estate Services Coordinator Signature: Ashlee Martinez Phone #: ext [phone] Date/Time: 08/02/2020 0553 This is a permanent part of the Medical Record [facility]
--- NOTE | 2020-08-02 06:00 | PQF ---
CLINICAL DOCUMENTATION CLARIFICATION FORM: Dear : Mishel Rodriguez Date / Time: 08/02/20 0559 Please exercise your independent, professional judgment in responding to the clarification form. Clinical indicators are provided on the bottom of this form for your review Please check appropriate box(es) to clarify if the following diagnosis has been ruled in our ruled out: NSTEMI type 2 [X ] Ruled in diagnosis [ ] Continue to treat [ ] Resolved [ ] Ruled out diagnosis [ ] Improving [ ] Cannot rule out diagnosis [ ] Other diagnosis,please specify: [ ] Unable to determine Physician Signature: Date/Time: For continuity of documentation, please document condition throughout progress notes and discharge summary. Thank You. To be completed by CDI/Coding staff for physician review: Present Clinical Indicators - Signs / Symptoms / Labs Results and Location in Medical Record [X] BP 176/77, Pulse 80, Resp 16, Temp 99 Vital signs 07/23 [X] Troponin: 07/23 17:32=0.144 07/23 20:35=0.130 07/23 23:26=0.144 Laboratory 07/23 [X] CK-MB: 07/23 17:32=3.0 Laboratory 07/23 [X] Echocardiogram: EF at 60-65 % Cardiac Procedure Dr Saini 07/24 [X] EKG showed Normal rhythm left atrial enlargement pulse 92 SD 142, no STEMI Cardiac Procedure Dr Saini 07/23 [X] Elevated troponin ED notes p8 07/23 [X] Aspirin given for possible ACS at ED H&P Dr Maldonado 07/23 [X] No hx of CAD H&P Dr Maldonado 07/23 [X] Elevated troponin likely type II NSTEMI, ECHO showed no wall motion abnormality HNP p3 Dr Rodriguez 07/24 Present Risk Factors Results and Location in Medical Record [X] 75 year-old Female H&P Dr Maldonado 07/23 [X] GI bleeding H&P Dr Maldonado 07/23 [X] Family history of cardiac disorder H&P Dr Maldonado 07/23 Present Treatments Results and Location in Medical Record [X] IVF NS 1L DEC 31 [X] Aspirin 40 mg oral DEC 31 [X] Echocardiogram Cardiac Procedure Dr Saini 07/24 [X] EKG Cardiac Procedure Dr Saini 07/23 [X] Monitor Troponin H&P Dr Maldonado 07/23 CDS/Air Bag Stripper Signature: Ashlee Martinez Phone #: ext [phone] Date/Time: 08/02/2020 0559 This is a permanent part of the Medical Record [facility]
== END 2020-07-26 16:20 | disposition home or self-care (01) | DRG 391 ==
LOC: ERS 16:53 → 2NO 19:53
PROVIDERS: ADMIT Internal Medicine; ATTEND Internal Medicine
DX: A09 Infectious gastroenteritis and colitis, unspecified (principal); I21.A1 Myocardial infarction type 2; K86.2 Cyst of pancreas; D72.829 Elevated white blood cell count, unspecified; D64.9 Anemia, unspecified; Z90.49 Acquired absence of other specified parts of digestive tract; Z90.710 Acquired absence of both cervix and uterus; Z88.2 Allergy status to sulfonamides
CPT/HCPCS: 36415; 74174; 74177; 80048; 80053; 81003; 82274; 82550; 82553; 83880; 84484; 85025; 85027; 85610; 85730; 86850; 86900; 86901; 87045; 87046; 87081; 87324; 87427; 87449; 93005; 93306; 96361; 96374; C9113; J0696; J3490; Q9967

== ENCOUNTER 2021-12-16 13:09 | Inpatient (IN) | payer MEDICARE, OTHER ==
[2021-12-16 13:40] LABS: #Eosinphils 0.1 thou/uL (0.0-0.7); #Lymphocytes 1.7 thou/uL (1.20-3.40); #Monocytes 0.5 thou/uL (0.11-0.59); #Neutrophils 5.7 thou/uL (1.40-6.50); %Basophils 0.4 % (0.0-1.0); %Eosinophils 1.3 % (0.0-10.0); %Neutrophils 71.3 % (42.0-75.0); Hemoglobin 14.8 g/dL (12.0-16.0); Mean Corpuscular HGB CONC 32.6 g/dL (32.0-36.0); Mean Corpuscular Hemoglobin 32.1 pg (27.0-31.0); Mean Corpuscular Volume 98.6 fL (78.0-98.0); Mean Platelet Volume 7.2 fL (7.4-10.4); Platelet Count 387 thou/uL (130-400); RBC Distribution Width 13.7 % (11.5-14.5)
[2021-12-16 14:00] LABS: ALT (SGPT) 24 U/L (8-55); AST (SGOT) 80 U/L (5-34); Albumin 4.1 g/dL (3.4-4.8); Alkaline Phosphatase 54 U/L (40-110); Anion Gap 12 mmol/L (10-20); BUN (Urea Nitrogen) 17 mg/dL (9.8-20.1); Bilirubin, Total 0.9 mg/dL (0.2-1.2); Calc. Creatinine Clearance 0 mL/min (70-130); Calcium 9.2 mg/dL (7.8-10.44); Carbon Dioxide 24 mmol/L (23-31); Chloride 107 mmol/L (98-107); Globulin 2.8 g/dL (2.4-3.5); Glucose 129 mg/dL (83-110); Potassium 3.6 mmol/L (3.5-5.1); Protein, Total 6.9 g/dL (5.8-8.1); Sodium 139 mmol/L (136-145)
[2021-12-16] MEDS ORDERED: Nitroglycerin 0.4 MG TAB 1 EACH ONE (14:27)
[2021-12-16] MEDS ORDERED: Nitroglycerin 2% Ointment 1 INCH/1 GM Packet ONE (14:27)
[2021-12-16] MEDS ORDERED: Aspirin Chewable 81 MG TAB ONE (14:35)
[2021-12-16] MEDS ORDERED: Heparin 10,000 UNITS/ 10 ML VIAL ONE (14:35)
[2021-12-16 14:40] LABS: CKMB 81.3 ng/mL (0-6.6)
[2021-12-16] MEDS ORDERED: Heparin 25,000 units/D5W 500 ML ONE (14:57)
[2021-12-16] MEDS ORDERED: Ondansetron PF 4 MG/2 ML Vial IVP PRN (15:42)
[2021-12-16] MEDS ORDERED: Acetaminophen 650 MG Suppository PR PRN (15:42)
[2021-12-16] MEDS ORDERED: Acetaminophen 325 MG TAB PO PRN (15:42)
[2021-12-16] MEDS ORDERED: Ondansetron ODT 4 MG TAB PO PRN (15:42)
[2021-12-16] MEDS ORDERED: hydrALAZINE 20 MG/ML VIAL SLOW IVP PRN (15:52)
[2021-12-16] MEDS ORDERED: Heparin 10,000 UNITS/ 10 ML VIAL SLOW IVP SCH (16:00)
[2021-12-16] MEDS ORDERED: Heparin 25,000 units/D5W 500 ML IVPB SCH (16:00)
[2021-12-16 17:04] LABS: SARS-CoV-2 NAA Rapid Test Not Detected (NotDetected)
[2021-12-16 17:06] LABS: Hemoglobin 13.8 g/dL (12.0-16.0); Platelet Count 347 thou/uL (130-400)
[2021-12-16] MEDS ORDERED: Atorvastatin Calcium 40 MG TAB PO SCH (17:15)
[2021-12-16] MEDS ORDERED: Metoprolol Tartrate 25 MG TAB PO SCH (17:15)
[2021-12-16 17:17] LABS: Prothrombin Time 12.9 sec (12.0-14.7)
[2021-12-16 17:21] LABS: Hemoglobin A1c 5.2 % (4.0-6.0)
[2021-12-16 17:48] LABS: Troponin I 4.387 ng/mL (< 0.028)
[2021-12-16 19:40] VITALS: BMI 21.7
[2021-12-16 20:14] LABS: Troponin I 5.292 ng/mL (< 0.028)
[2021-12-16] MEDS: Nitroglycerin 2% Ointment 1 INCH/1 GM Packet TOP SCH (22:06)
[2021-12-17 04:57] LABS: #Eosinphils 0.1 thou/uL (0.0-0.7); #Lymphocytes 1.9 thou/uL (1.20-3.40); #Monocytes 0.5 thou/uL (0.11-0.59); #Neutrophils 6.7 thou/uL (1.40-6.50); %Basophils 0.5 % (0.0-1.0); %Eosinophils 0.9 % (0.0-10.0); %Monocytes 5.8 % (0.0-10.0); %Neutrophils 71.9 % (42.0-75.0); Hemoglobin 13.8 g/dL (12.0-16.0); Mean Corpuscular HGB CONC 32.2 g/dL (32.0-36.0); Mean Corpuscular Volume 99.2 fL (78.0-98.0); Mean Platelet Volume 7.2 fL (7.4-10.4); Platelet Count 353 thou/uL (130-400); RBC Distribution Width 13.7 % (11.5-14.5); Red Blood Cell (RBC) Count 4.31 mill/uL (4.20-5.40); White Blood Cell (WBC) Count 9.3 thou/uL (4.8-10.8)
[2021-12-17 05:23] LABS: ALT (SGPT) 28 U/L (8-55); AST (SGOT) 127 U/L (5-34); Albumin 3.6 g/dL (3.4-4.8); Alkaline Phosphatase 48 U/L (40-110); Anion Gap 12 mmol/L (10-20); BUN (Urea Nitrogen) 16 mg/dL (9.8-20.1); Bilirubin, Total 1.1 mg/dL (0.2-1.2); Calc. Creatinine Clearance 76 mL/min (70-130); Calcium 8.6 mg/dL (7.8-10.44); Carbon Dioxide 25 mmol/L (23-31); Chloride 109 mmol/L (98-107); Cholesterol 252 mg/dl (< 200 Desired); Globulin 2.5 g/dL (2.4-3.5); Glucose 104 mg/dL (83-110); HDL Cholesterol 63 mg/dL (>60 Neg Risk); LDL Cholesterol, Calculated 175 mg/dL; Potassium 3.7 mmol/L (3.5-5.1); Protein, Total 6.1 g/dL (5.8-8.1); Sodium 142 mmol/L (136-145); Triglycerides 72 mg/dL (Less than 150)
[2021-12-17] MEDS ORDERED: Lidocaine 1% (PF) 30 ML VIAL ONE (06:38)
[2021-12-17] MEDS ORDERED: Midazolam HCl 2 mg/2 ml Vial ONE (07:18)
[2021-12-17] MEDS ORDERED: Fentanyl 250 MCG/5 ML VIAL ONE (07:18)
[2021-12-17] MEDS: Nitroglycerin 2% Ointment 1 INCH/1 GM Packet TOP SCH ×3 (07:30→20:23)
[2021-12-17] MEDS ORDERED: Heparin 10,000 UNITS/ 10 ML VIAL ONE (07:50)
[2021-12-17] MEDS ORDERED: TICAGRELOR 90 MG TABLET ONE (08:18)
[2021-12-17] MEDS ORDERED: Morphine 2 MG/ML VIAL SLOW IVP PRN (08:24)
[2021-12-17] MEDS ORDERED: Nitroglycerin 0.4 MG TAB (25 Tab Bottle) SL PRN (08:24)
[2021-12-17] MEDS ORDERED: Morphine 4 MG/ML VIAL SLOW IVP PRN (08:34)
[2021-12-17] MEDS ORDERED: Aspirin Chewable 81 MG TAB ONE (08:48)
[2021-12-17] MEDS ORDERED: Aspirin 81 mg Enteric Coated Tablet PO SCH (09:00)
[2021-12-17] MEDS ORDERED: Metoprolol Tartrate 25 MG TAB PO SCH (09:00)
[2021-12-17] MEDS: Aspirin Chewable 81 MG TAB PO SCH (10:14)
[2021-12-17] MEDS ORDERED: Iopamidol 370 76% 50 ML VIAL FS ONE (12:11)
[2021-12-17] MEDS ORDERED: Iopamidol 370 76% 100 ML VIAL ONE (12:11)
[2021-12-17] MEDS: Sodium Chloride 0.9% 250 ML IV SCH ×3 (12:19→18:43)
[2021-12-17] MEDS ORDERED: Metoprolol Tartrate 5 MG/5 ML VIAL ONE (12:20)
[2021-12-17] MEDS: TICAGRELOR 90 MG TABLET PO SCH ×2 (12:22→20:23)
[2021-12-17] MEDS ORDERED: Atorvastatin Calcium 40 MG TAB PO SCH (21:00)
[2021-12-18 04:57] LABS: #Eosinphils 0.1 thou/uL (0.0-0.7); #Lymphocytes 1.4 thou/uL (1.20-3.40); #Monocytes 0.7 thou/uL (0.11-0.59); #Neutrophils 5.8 thou/uL (1.40-6.50); %Basophils 0.2 % (0.0-1.0); %Eosinophils 1.6 % (0.0-10.0); %Lymphocytes 17.3 % (21.0-51.0); %Monocytes 8.7 % (0.0-10.0); %Neutrophils 72.1 % (42.0-75.0); Hemoglobin 12.8 g/dL (12.0-16.0); Mean Corpuscular HGB CONC 33.3 g/dL (32.0-36.0); Mean Corpuscular Hemoglobin 32.8 pg (27.0-31.0); Mean Corpuscular Volume 98.2 fL (78.0-98.0); Mean Platelet Volume 7.3 fL (7.4-10.4); Platelet Count 318 thou/uL (130-400); RBC Distribution Width 13.8 % (11.5-14.5); Red Blood Cell (RBC) Count 3.92 mill/uL (4.20-5.40); White Blood Cell (WBC) Count 8.1 thou/uL (4.8-10.8)
[2021-12-18 05:18] LABS: ALT (SGPT) 27 U/L (8-55); AST (SGOT) 91 U/L (5-34); Albumin 3.3 g/dL (3.4-4.8); Alkaline Phosphatase 48 U/L (40-110); Anion Gap 9 mmol/L (10-20); BUN (Urea Nitrogen) 15 mg/dL (9.8-20.1); Bilirubin, Total 1.2 mg/dL (0.2-1.2); Calc. Creatinine Clearance 81 mL/min (70-130); Calcium 8.4 mg/dL (7.8-10.44); Carbon Dioxide 24 mmol/L (23-31); Chloride 111 mmol/L (98-107); Globulin 2.3 g/dL (2.4-3.5); Glucose 95 mg/dL (83-110); Potassium 3.3 mmol/L (3.5-5.1); Protein, Total 5.6 g/dL (5.8-8.1); Sodium 141 mmol/L (136-145)
[2021-12-18] MEDS: Nitroglycerin 2% Ointment 1 INCH/1 GM Packet TOP SCH (06:33)
[2021-12-18] MEDS: TICAGRELOR 90 MG TABLET PO SCH (08:45)
[2021-12-18] MEDS: Aspirin Chewable 81 MG TAB PO SCH (08:45)
[2021-12-18 11:43] VITALS: BP 116/60; TEMP 98.8
== END 2021-12-18 14:25 | disposition home or self-care (01) | DRG 247 ==
LOC: ERS 13:09 → ERHOLD 14:39 → NEURO 18:52
PROVIDERS: ADMIT Family Medicine; ATTEND Family Medicine
PROC: 4A023N7 Measurement of Cardiac Sampling and Pressure, Left Heart, Percutaneous Approach (ICD-10-PCS; principal; 2021-12-17)
PROC: B2151ZZ Fluoroscopy of Left Heart using Low Osmolar Contrast (ICD-10-PCS; 2021-12-17)
PROC: B2111ZZ Fluoroscopy of Multiple Coronary Arteries using Low Osmolar Contrast (ICD-10-PCS; 2021-12-17)
PROC: 027034Z Dilation of Coronary Artery, One Artery with Drug-eluting Intraluminal Device, Percutaneous Approach (ICD-10-PCS; 2021-12-17)
DX: I21.4 Non-ST elevation (NSTEMI) myocardial infarction (principal); Z20.822 Contact with and (suspected) exposure to COVID-19; I16.0 Hypertensive urgency; E03.9 Hypothyroidism, unspecified; I10 Essential (primary) hypertension; R74.01 Elevation of levels of liver transaminase levels; Z90.49 Acquired absence of other specified parts of digestive tract; Z90.710 Acquired absence of both cervix and uterus; Z88.2 Allergy status to sulfonamides; Z82.49 Family history of ischemic heart disease and other diseases of the circulatory system
CPT/HCPCS: 36415; 36416; 71045; 71046; 80053; 80061; 82553; 83036; 83880; 84443; 84484; 85025; 85347; 85610; 85730; 92928; 93005; 93010; 93306; 93458; 93798; 96374; 97139; 99152; 99153; C1769; C1874; C9600; J1644; J2001; J2250; J3010; J7030; Q9967; U0002

== ENCOUNTER 2023-06-21 08:59 | Emergency (ER) | payer MEDICARE ==
[2023-06-21] MEDS ORDERED: Cyclobenzaprine 10 MG TAB ONE (10:16)
== END 2023-06-21 10:54 | disposition home or self-care (01) ==
LOC: ERS 08:59
DX: S39.012A Strain of muscle, fascia and tendon of lower back, initial encounter (principal); I10 Essential (primary) hypertension; X50.0XXA Overexertion from strenuous movement or load, initial encounter
CPT/HCPCS: 99283